=== PATIENT | male | born 1975 | race Two or more races ===

== ENCOUNTER → 2016-11-30 | Outpatient (CLI) | payer OTHER ==
[~2016-11-30] MED LIST: HYDR-3498 PO; MECL25TA2 PO
== END | disposition home or self-care (01) ==
LOC: HKI 14:53
PROVIDERS: ATTEND Orthopaedic Surgery Adult Reconstructive Orthopaedic Surgery
DX: M23.221 Derangement of posterior horn of medial meniscus due to old tear or injury, right knee (principal); S83.231D Complex tear of medial meniscus, current injury, right knee, subsequent encounter; X58.XXXD Exposure to other specified factors, subsequent encounter
CPT/HCPCS: G0463

== ENCOUNTER → 2016-12-29 | Outpatient (CLI) | payer OTHER ==
--- NOTE | 2016-12-30 02:36 | HKNOTE ---
DATE OF SERVICE: 12/29/2016 CHIEF COMPLAINT: Right knee pain. HISTORY OF PRESENT ILLNESS: This is a 41-year-old male with a right knee posterior horn medial meni scus tear. The patient states that he has difficulty with performing his activities of daily living . He has instability. 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 He does not use any braces or assistive devices. H e does not take any pain medications. GAIT: Nonantalgic gait reciprocal gait pattern. PHYSICAL EXAMINATION: RIGHT KNEE: Neutral alignment. Tender over the medial joint line, nontender over the lateral joint line, 0 to 130 degrees range of motion, stable to varus valgus stress. Nega tive Santiago, negative anterior drawer, negative posterior drawer. Positive Sharon's medially. M otor strength 5/5, hamstrings, tibialis anterior, gastroc soleus peroneals and quadriceps. IMPRESSION: A 41-year-old male with a right knee complex tear, posterior horn of the medial meniscu s. PLAN: After obtaining consent, the right knee was prepped and draped in the usual sterile fashion a nd an injection of 1 mL of Depo-Medrol along with 3 mL of lidocaine was injected through the lateral portal. There were no complications. He tolerated the procedure well. He was advised to ice and elevate the right knee. He will follow up as needed in the future. Dictated By: IRINA PARKER/RAVINDER Conf#: [id number] DID#: [id number]
--- NOTE | 2016-12-30 02:36 | HKNOTE ---
DATE OF SERVICE: 12/29/2016 CHIEF COMPLAINT: Right knee pain. HISTORY OF PRESENT ILLNESS: This is a 41-year-old male with a right knee posterior horn medial meni scus tear. The patient states that he has difficulty with performing his activities of daily living . He has instability. 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 He does not use any braces or assistive devices. H e does not take any pain medications. GAIT: Nonantalgic gait reciprocal gait pattern. PHYSICAL EXAMINATION: RIGHT KNEE: Neutral alignment. Tender over the medial joint line, nontender over the lateral joint line, 0 to 130 degrees range of motion, stable to varus valgus stress. Nega tive Santiago, negative anterior drawer, negative posterior drawer. Positive Sharon's medially. M otor strength 5/5, hamstrings, tibialis anterior, gastroc soleus peroneals and quadriceps. IMPRESSION: A 41-year-old male with a right knee complex tear, posterior horn of the medial meniscu s. PLAN: After obtaining consent, the right knee was prepped and draped in the usual sterile fashion a nd an injection of 1 mL of Depo-Medrol along with 3 mL of lidocaine was injected through the lateral portal. There were no complications. He tolerated the procedure well. He was advised to ice and elevate the right knee. He will follow up as needed in the future. Dictated By: IRINA PARKER/RAVINDER Conf#: [id number] DID#: [id number]
--- NOTE | 2016-12-30 02:36 | HKNOTE ---
DATE OF SERVICE: 12/29/2016 CHIEF COMPLAINT: Right knee pain. HISTORY OF PRESENT ILLNESS: This is a 41-year-old male with a right knee posterior horn medial meni scus tear. The patient states that he has difficulty with performing his activities of daily living . He has instability. 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 He does not use any braces or assistive devices. H e does not take any pain medications. GAIT: Nonantalgic gait reciprocal gait pattern. PHYSICAL EXAMINATION: RIGHT KNEE: Neutral alignment. Tender over the medial joint line, nontender over the lateral joint line, 0 to 130 degrees range of motion, stable to varus valgus stress. Nega tive Santiago, negative anterior drawer, negative posterior drawer. Positive Sharon's medially. M otor strength 5/5, hamstrings, tibialis anterior, gastroc soleus peroneals and quadriceps. IMPRESSION: A 41-year-old male with a right knee complex tear, posterior horn of the medial meniscu s. PLAN: After obtaining consent, the right knee was prepped and draped in the usual sterile fashion a nd an injection of 1 mL of Depo-Medrol along with 3 mL of lidocaine was injected through the lateral portal. There were no complications. He tolerated the procedure well. He was advised to ice and elevate the right knee. He will follow up as needed in the future. Dictated By: IRINA PARKER/RAVINDER Conf#: [id number] DID#: [id number]
== END | disposition home or self-care (01) ==
LOC: HKI 15:42
PROVIDERS: ATTEND Orthopaedic Surgery Adult Reconstructive Orthopaedic Surgery
DX: M23.221 Derangement of posterior horn of medial meniscus due to old tear or injury, right knee (principal)
CPT/HCPCS: 20610; J1030